=== PATIENT | female | born 1985 | race Caucasian/White ===

== ENCOUNTER 2020-08-14 23:57 | Emergency (ER) | payer BC, SELFPAY ==
--- NOTE | ~2020-08-14 | XR_ITS ---
EXAMINATION: XR ankle RT 2V DATE: 08/15/2020 00:50 INDICATION: Dog bite with pain at the lateral malleolus of the right ankle TECHNIQUE: Anteroposterior and lateral views of the right ankle were obtained. COMPARISON: None. FINDINGS: Alignment is normal. No fracture. Joint spaces are well maintained. No ankle joint effusion. The so ft tissues are unremarkable. IMPRESSION: 1. Negative right ankle radiographs. Reviewed, dictated and finalized at location A. FURNACE OPERATOR
[2020-08-15 00:05] VITALS: BP 126/93; PULSE 79; RESP 16; TEMP 37; O2SAT 100
--- NOTE | 2020-08-15 00:12 | ECG_ITS ---
Measurements Intervals [place] Rate: 84 P: 65 KS: 137 QRS: 64 QRSD: 90 T: 26 QT: 371 QTc: 441 Interpretive Statements SINUS RHYTHM NONSPECIFIC T-WAVE ABNORMALITY- ANTERIOR LEADS BORDERLINE ECG Electronically Signed On 08-15-2020 6:49:53 PROJECT MANAGEMENT PROFESSIONAL by Nas Su D.O.
--- NOTE | 2020-08-15 00:34 | ED.SYNCOPE ---
HPI - Syncope General Chief Complaint: Syncope Stated Complaint: SYNCOPE Time Seen by Provider: 08/15/20 00:00 Source: patient Mode of arrival: ambulatory Limitations: no limitations History of Present Illness HPI narrative: A 35-year-old female comes into the emergency department tonight after complaints of a syncopal episode. Patient states earlier today she accidentally kicked her dog while playing with him, noting that his tooth caught her ankle. Patient states that the wound bled pretty significantly and now has started to cause serious pain. Patient notes that she got the bleeding to stop at home. She does endorse some numbness and tingling in the area. She states that while lying in bed the pain became so intense that she could not go to sleep. She got up from bed went to go get some Tylenol or ibuprofen for the pain and states that she almost passed out from the pain. Her was able to catch her and lowered her to the ground. Related Data Allergies Allergy/AdvReac Type Severity Reaction Status Date / Time No Known Allergies Allergy Unverified 09/10/18 12:32 Review of Systems Review of Systems: Narrative: CONSTITUTIONAL: Denies fever, chills, or sweats. EYES: Denies visual changes, redness, or discharge. ENT: Denies rhinorrhea, congestion, sore throat, or otalgia. CARDIOVASCULAR: Denies chest pain, palpitations, or edema. RESPIRATORY: Denies cough or dyspnea. GASTROINTESTINAL: Denies abdominal pain, nausea, vomiting, or diarrhea. GENITOURINARY: Denies dysuria or hematuria. SKIN: Denies rash or itching. MUSCULOSKELETAL: Denies back pain, joint pain, or myalgia. Right ankle pain NEUROLOGIC: Denies headache, numbness, dizziness, or weakness. PSYCHIATRIC: Denies anxiety or depression. Exam Narrative: Exam Narrative: GENERAL: Well-appearing, well-nourished, and in no acute distress. HEAD: Normocephalic, atraumatic. EYES: PERRLA and EOMI. ENT: Nares clear, no rhinorrhea or epistaxis. Mucous membranes moist. Oropharynx without tonsillar hypertrophy exudate or other lesions. Bilateral TMs pearly roland nonbulging NECK: Supple. No adenopathy or masses. No carotid bruits or JVD CHEST: Clear to auscultation. No respiratory distress. No wheezes rales or rhonchi HEART: Regular rate and rhythm. No murmur heard. Normal peripheral pulses. ABDOMEN: Soft, nontender, nondistended, normal active bowel sounds. EXTREMITIES: Normal range of motion. No edema. Punctate wound noted just anterior to the medial malleolus of the right ankle SKIN: Warm, dry, no rash. NEURO: No focal deficits. Alert and oriented x3. PSYCH: Normal mood and affect. Course Reevaluation(s) Reevaluation #1: Patient resting comfortably at this time. She states that she was given the pain medication and antibiotic approximately 15 to 20 minutes ago. She notes that the pain has just started to go down. Explained to her that this will continue to go down as the medicine takes full effect. Patient will be discharged with prescriptions for antibiotics and pain medicines. Time: 01:49 Vital Signs Vital signs: Vital Signs Temperature 37.0 C 08/15/20 00:05 Pulse Rate 79 08/15/20 00:05 Respiratory Rate 16 08/15/20 00:05 Blood Pressure 126/93 H 08/15/20 00:05 Pulse Oximetry 100 08/15/20 00:05 Temperature 37.0 C 08/15/20 00:05 Pulse Rate 79 08/15/20 00:05 Respiratory Rate 16 08/15/20 00:05 Blood Pressure 126/93 H 08/15/20 00:05 Pulse Oximetry 100 08/15/20 00:05 MDM - Syncope MDM Narrative Medical decision making narrative: In brief this is a 35-year-old female who essentially came in with a dog bite injury. After accidentally kicking her dog and the tooth catching her ankle the patient did sustain a puncture wound to the right ankle. She was complaining of severe pain in this area. X-ray of the joint does not demonstrate any retained foreign bodies. Patient was treated symptomatically with pain medicines and antibiotics. She
[2020-08-15] MEDS: IBUPROFEN 600 MG TABLET PO (00:55)
[2020-08-15] MEDS: AMOXICILLIN/CLAVULANATE K 875-125 MG TAB 1 TABLET PO (00:56)
[2020-08-15] MEDS: oxyCODONE/ACETAMINOPHEN (*CRX) 5-325 MG TABLET 1 TABLET PO (00:56)
[2020-08-15 01:15] VITALS: BP 127/81; PULSE 77; PULSE 80; RESP 18; O2SAT 100
[2020-08-15 01:16] LABS: Basophils Percent Auto 0.4 % (0.2-1.2); Eosinophils Absolute Auto 0.1 K/mm3 (0-0.3); Hematocrit 37.3 % (37.0-47.0); Hemoglobin 12.1 g/dL (12.0-15.0); Immature Granulocyte Absolute 0.03 K/mm3 (0.00-0.031); Immature Granulocyte Percent A 0.3 % (0-0.5); Lymphocytes Absolute Auto 2.29 K/mm3 (0.9-3.2); Lymphocytes Percent Auto 25.6 % (18.3-44.2); Mean Corpuscular HGB Conc 32.4 g/dl (32-36); Mean Corpuscular Hemoglobin 27.4 pg (26-34); Mean Corpuscular Volume 84.4 fl (80-100); Mean Platelet Volume 11.1 fl (7.4-10.4); Monocytes Absolute Auto 0.5 K/mm3 (0.1-0.6); Neutrophils Percent Auto 67.7 % (45.5-73.1); Platelet Count Result 201 k/mm3 (150-375); Red Blood Count 4.42 M/mm3 (4.2-5.4); Red Cell Distribution Width 13.8 % (11.5-14.5); White Blood Count 8.9 K/mm3 (4.5-10.0)
[2020-08-15 01:30] VITALS: O2SAT 100
[2020-08-15 01:34] LABS: Anion Gap 3 mmol/L (8-16); Blood Urea Nitrogen 14 mg/dL (7-17); Calcium 8.9 mg/dL (8.4-10.2); Carbon Dioxide 27 mmol/L (22-30); Chloride 108 mmol/L (98-107); Estimated CRCL calculation 95 ml/min; Estimated Glomerular Filt Rate > 60; Glucose 97 mg/dL (65-105); Potassium 3.5 mmol/L (3.4-5.0); Sodium 138 mmol/L (137-145)
[2020-08-15 02:06] VITALS: BP 115/86; PULSE 96; RESP 20; O2SAT 98
== END 2020-08-15 02:15 | disposition home or self-care (01) ==
PROVIDERS: Emergency Provider Emergency Medicine
DX: R55 Syncope and collapse (principal); S91.031A Puncture wound without foreign body, right ankle, initial encounter; W54.8XXA Other contact with dog, initial encounter; R94.31 Abnormal electrocardiogram [ECG] [EKG]
CPT/HCPCS: 36415; 73600; 80048; 85025; 93005; 99283; A9270

== ENCOUNTER → 2021-09-16 15:24 | Outpatient (CLI) | payer BC, SELFPAY ==
--- NOTE | ~2021-09-16 | US_ITS ---
EXAMINATION: US OB /maternal detail DATE: 09/16/2021 16:01 INDICATION: survey. Estimated weight. TECHNIQUE: Multiple obstetric sonographic images performed. FINDINGS: No prior studies for comparison. There is a single living fetus in vertex presentation. The placenta is posterior and low lying measu ring 1.2 cm to the cervix without placenta previa. Amniotic fluid volume is subjectively normal. cardiac activity and movement is noted with a heart rate of 151 beats per minute. The following anatomy was identified as normal: 4 chamber heart 3 vessel cord cord insertion kidneys urinary bladder stomach spine diaphragm ventricles cisterna magna cerebellum The following biometric data were obtained: BPD: 48mm corresponds to gestational age 20 weeks 3 days. Head circumference: 182 mm corresponds to gestational age 20 weeks 4 days. Abdominal circumference: 150 to mm corresponds to gestational age 20 weeks 3 days. Femur length: 34 mm corresponds to gestational age 20 weeks 3 days. Head circumference to abdominal circumference ratio: 1.2 (normal range for expected gestational age i s 1.07-1.25). Estimated weight: 356 grams +/- 54 grams using Hadlock method, 39.7%. IMPRESSION: 1: Single living intrauterine with an estimated gestational age of 20weeks 3days by current ultrasound measurements, with an EDC of 02/01/2012 in breech presentation. 2. Normal survey. 3: Low-lying posterior placenta measuring 1.2 cm to the cervix. Reviewed, dictated and finalized at location A. MITE PACKING MACHINE FEEDER IMPRESSION: 1: Single living intrauterine with an estimated gestational age of 20 weeks 3days by current ultrasound measurements, with an EDC of 02/01/2012 in fernando ech presentation. 2. Normal survey. 3: Low-lying posterior placenta measuring 1.2 cm to the cervix.
== END ==
PROVIDERS: PCP Obstetrics & Gynecology; Visit Provider Obstetrics & Gynecology
DX: Z34.92 Encounter for supervision of normal pregnancy, unspecified, second trimester (principal); Z3A.20 20 weeks gestation of pregnancy
CPT/HCPCS: 76805

== ENCOUNTER 2022-01-09 18:03 | Observation (INO) | payer BC, SELFPAY ==
[2022-01-09 20:00] VITALS: BMI 29.0
--- NOTE | 2022-01-09 20:33 | OBADM ---
This patient, Hannah Castillo, admitted to the OB room Labor/Delivery/Recovery 105 for observation. Patient/family oriented to hospital policies and general routines including ID bracelet, bed and alarms, visiting hours, pain management, procedures, bathroom and other care routines, personal items, smoking policy, room service/diet, and visiting hours. Patient/Family are encouraged to report perceived risks to care and to ask questions if they do not understand what they are told or what they should do.
--- NOTE | 2022-01-11 16:39 | PM.OBTRLD ---
OB - Triage/Final Diagnosis Visit Information Date of evaluation: 01/09/22 Reason for evaluation: threatened labor Comments/Additional reasons for admission: I have assessed the risk for this patient, Hannah Rachelle Castillo, and determined that she would benefit from observation care.
== END 2022-01-09 20:33 | disposition home or self-care (01) ==
PROVIDERS: Admitting Provider Student in an Organized Health Care Education/Training Program; Visit Provider Student in an Organized Health Care Education/Training Program
DX: O47.1 False labor at or after 37 completed weeks of gestation (principal); Z3A.37 37 weeks gestation of pregnancy
CPT/HCPCS: G0378; G0379

== ENCOUNTER 2022-01-17 07:56 | Outpatient (CLI) | payer BC, SELFPAY ==
[2022-01-17] VITALS (13 sets, daily range): BP systolic 107–129; BP diastolic 57–89; PULSE 80–95
[2022-01-17 09:01] LABS: Basophils Percent Auto 0.3 % (0.2-1.2); Eosinophils Absolute Auto 0.1 K/mm3 (0-0.3); Eosinophils Percent Auto 0.7 % (0-4.4); Hematocrit 39.6 % (37.0-47.0); Immature Granulocyte Absolute 0.05 K/mm3 (0.00-0.031); Immature Granulocyte Percent A 0.6 % (0-0.5); Lymphocytes Percent Auto 14.7 % (18.3-44.2); Mean Corpuscular HGB Conc 32.8 g/dl (32-36); Mean Corpuscular Hemoglobin 28.8 pg (26-34); Mean Corpuscular Volume 87.6 fl (80-100); Mean Platelet Volume 11.2 fl (7.4-10.4); Monocytes Absolute Auto 0.5 K/mm3 (0.1-0.6); Monocytes Percent Auto 5.6 % (2.6-8.5); Neutrophils Absolute Auto 6.9 K/mm3 (1.3-6.7); Neutrophils Percent Auto 78.1 % (45.5-73.1); Platelet Count Result 165 k/mm3 (150-375); Red Blood Count 4.52 M/mm3 (4.2-5.4); White Blood Count 8.9 K/mm3 (4.5-10.0)
[2022-01-17 09:06] LABS: Creatinine Urine 27.3 mg/dL; Total Protein Urine Random 11 mg/dL
[2022-01-17 09:07] LABS: Alanine Aminotransferase 10 U/L (6-35); Albumin Level 3.7 g/dL (3.5-5.1); Alkaline Phosphatase 227 U/L (38-126); Anion Gap 4 mmol/L (8-16); Aspartate Amino Transferase 21 U/L (14-36); Bilirubin,Total 0.2 mg/dL (0.2-1.3); Blood Urea Nitrogen 4 mg/dL (7-17); Calcium 8.7 mg/dL (8.4-10.2); Carbon Dioxide 24 mmol/L (22-30); Chloride 107 mmol/L (98-107); Estimated Glomerular Filt Rate > 60; Glucose 78 mg/dL (65-110); Potassium 3.8 mmol/L (3.4-5.0); Sodium 135 mmol/L (137-145); Uric Acid 3.4 mg/dL (2.5-7.5)
[2022-01-17 09:08] LABS: Appearance Urine Clear (Clear); Bilirubin Urine Negative (Negative); Blood Urine Negative (Negative); Color Urine Yellow (Yellow); Glucose Urine UA Negative (Negative); Ketones Urine Negative (Negative); Leukocyte Esterase Ur Trace LEU/UL (NEGATIVE); Nitrate Urine Negative (Negative); Protein Urine Negative (Negative); Urobilinogen Urine 0.2 mg/dL (<2.0)
[2022-01-17 09:30] LABS: Bacteria Urine Trace /hpf; RBC Urine 0-2 /hpf (0-2); Squamous Epithelial Cell Urine Rare /hpf (Few); WBC Urine 0-3 /hpf (0-3)
[2022-01-17 09:33] LABS: Add Urine Microscopic? YES
--- NOTE | 2022-01-17 09:34 | PC.NURSE ---
Dr Mendieta notified of admission complaint of elevated blood pressure, headache, heart tones, and lab values. Orders received, pt okay to D/C if headached is better.
[2022-01-17] MEDS: ACETAMINOPHEN/BUTALBITAL/CAFFEINE 325-50-40 MG TABLET (FIORICET) 1 TAB PO (10:07)
== END 2022-01-17 11:12 | disposition home or self-care (01) ==
LOC: ANHOBOP 08:03 → ANHOBPP 01-24 09:40
PROVIDERS: Visit Provider Obstetrics & Gynecology
DX: O13.9 Gestational [pregnancy-induced] hypertension without significant proteinuria, unspecified trimester (principal); Z3A.00 Weeks of gestation of pregnancy not specified
CPT/HCPCS: 36415; 59025; 80053; 81001; 82570; 84156; 84550; 85025; 87086; 87088; 99199; A9270

== ENCOUNTER 2022-01-18 09:42 | Inpatient (IN) | payer BC, SELFPAY ==
[2022-01-18] VITALS (110 sets, daily range): BP systolic 107–141; BP diastolic 64–89; PULSE 71–139; RESP 16–18; TEMP 36.4–38.1; O2SAT 76–100; BMI 27.4
--- NOTE | 2022-01-18 09:42 | LDADM ---
This patient, Hannah Castillo, was admitted to Labor/Delivery/Recovery 104 on 01/18/22 at 09:42. Plans for labor, pain management and were discussed with patient. Patient/family oriented to hospital policies and general routines including ID bracelet, bed and alarms, visiting hours, pain management, procedures, bathroom and other care routines, personal items, smoking policy, room service/diet and guest tray routines, infant security routines, and visiting hours. Patient/Family are encouraged to report perceived risks to care and to ask questions if they do not understand what they are told or what they should do. See OBIX for further documentation.
[2022-01-18 10:16] LABS: Basophils Percent Auto 0.4 % (0.2-1.2); Eosinophils Percent Auto 0.4 % (0-4.4); Hematocrit 37.7 % (37.0-47.0); Hemoglobin 12.9 g/dL (12.0-15.0); Immature Granulocyte Absolute 0.07 K/mm3 (0.00-0.031); Immature Granulocyte Percent A 0.7 % (0-0.5); Lymphocytes Absolute Auto 1.58 K/mm3 (0.9-3.2); Mean Corpuscular HGB Conc 34.2 g/dl (32-36); Mean Corpuscular Hemoglobin 29.3 pg (26-34); Mean Corpuscular Volume 85.5 fl (80-100); Mean Platelet Volume 10.8 fl (7.4-10.4); Monocytes Absolute Auto 0.7 K/mm3 (0.1-0.6); Monocytes Percent Auto 6.2 % (2.6-8.5); Neutrophils Absolute Auto 8.2 K/mm3 (1.3-6.7); Neutrophils Percent Auto 77.3 % (45.5-73.1); Platelet Count Result 166 k/mm3 (150-375); Red Blood Count 4.41 M/mm3 (4.2-5.4); Red Cell Distribution Width 13.9 % (11.5-14.5); White Blood Count 10.6 K/mm3 (4.5-10.0)
[2022-01-18] MEDS: LACTATED RINGERS 1,000 ML 125 ML IV CONT ×3 (10:24→14:11)
--- NOTE | 2022-01-18 10:51 | WPDANESEPP ---
Anes - Eval Pre Procedure Procedure: labor epidural Date/Time: 01/18/22 10:51 Surgeon: perico Preop Diagnosis: pain during labor Pre Op Diagnosis: LEAKING Patient Data Age: 36 Gender: F Height: 1.73 m Weight: 82 kg Last Vital Signs Pulse 98 01/18/22 10:15 BP 120/82 01/18/22 10:15 Allergies Allergy/AdvReac Type Severity Reaction Status Date / Time No Known Allergies Allergy Verified 01/05/22 15:27 Home Medications Medication Instructions Recorded Confirmed Type docusate sodium 100 mg capsule 100 mg PO DAILY 01/05/22 01/05/22 History (Colace) magnesium 250 mg tablet 250 mg PO DAILY 01/05/22 01/05/22 History prenat.vits,ann,[id number] 1 tablet PO DAILY 01/05/22 01/05/22 History amoxicillin 500 mg tablet 1 tablet PO 2XD 01/17/22 01/18/22 History Laboratory Tests 01/18/22 01/18/22 10:07 10:07 WBC 10.6 K/mm3 H K/mm3 (4.5-10.0) RBC 4.41 M/mm3 M/mm3 (4.2-5.4) Hgb 12.9 g/dL g/dL (12.0-15.0) Hct 37.7 % % (37.0-47.0) MCV 85.5 fl fl (80-100) MCH 29.3 pg pg (26-34) MCHC 34.2 g/dl g/dl (32-36) RDW 13.9 % % (11.5-14.5) Plt Count 166 k/mm3 k/mm3 (150-375) MPV 10.8 fl H fl (7.4-10.4) Immature Gran % (Auto) 0.7 % H % (0-0.5) Neut % (Auto) 77.3 % H % (45.5-73.1) Lymph % (Auto) 15.0 % L % (18.3-44.2) [place] % (Auto) 6.2 % % (2.6-8.5) Eos % (Auto) 0.4 % % (0-4.4) Baso % (Auto) 0.4 % % (0.2-1.2) Lymph # (Auto) 1.58 K/mm3 K/mm3 (0.9-3.2) [place] # (Auto) 0.7 K/mm3 H K/mm3 (0.1-0.6) Eos # (Auto) 0.0 K/mm3 K/mm3 (0-0.3) Baso # (Auto) 0.0 K/mm3 K/mm3 (0.0-0.1) Abs Immat Gran (auto) 0.07 K/mm3 H K/mm3 (0.00-0.031) Absolute Neuts (auto) 8.2 K/mm3 H K/mm3 (1.3-6.7) Absolute Nucleated RBC 0.0 K/mm3 K/mm3 (0.0-0.012) Nucleated RBC % 0.0 % % (0.0-0.2) RPR Pending Patient hx anesthesia problems: none Family hx anesthesia problems: none Results Review: All pre-operative results and documents have been reviewed as part of the pre-operative evaluation. [facility] Family History Family History (Updated 01/05/22 @ 15:31 by Hina Pierce RN) Other No pertinent family history Social History Social History Smoking status: Never smoker Substance use: never Spiritual care concerns: No Exam Day of Procedure 01/18/22 10:51
[2022-01-18] MEDS: OXYTOCIN 30 UNITS/NS 500 ML 30 UNITS/500 ML BAG IV CONT (12:19)
--- NOTE | 2022-01-18 12:56 | WPDOBADMIT ---
Obstetrics - Admit Note Admission Note: record reviewed. Additions to the history and/or subsequent changes in the physical findings follow. 36 y/o at 38 6/7 weeks with gush of fluid at 0630 today. SROM confirmed in office. Occasional contractions. GBS neg. She is now comfortable with epidural. AVSS NST reactive TOCO: contractions irregularly ABD soft, nontender, gravid, vertex EXT nontender Cervix 4/50/-2. AROM forebag, return of clear fluid. A: IUP at term with SROM. P: Augment labor as needed. Anticipate .
--- NOTE | 2022-01-18 17:12 | PM.OBPRVD ---
OB - Delivery Note Procedure Delivery date: 01/18/22 Procedure: Induction method: None Delivery augmentation: Pitocin Delivery monitor: External FHT and External Uterine Route of delivery: Laceration Description: None Specimen: Yes (cord blood) Quantitative Blood Loss (ml): 220 Anesthesia type: Epidural Disposition: PACU Complications: None Narrative: 36 y/o at 38 6/7 weeks gestation who presented to the office with a gush of fluid at 0630. SROM diagnosed, and she was sent to L&D. Oxytocin was administered intravenously for labor augmentation. She received an epidural for pain control. Her labor progressed and her cervix dilated completely. She pushed with good effort and delivered the infant's head to the perineum, followed by the body. The nose and mouth were bulb suctioned. After a delay, the cord was clamped and cut. The was handed off the field. Cord blood was collected. The placenta delivered spontaneously and was grossly normal in appearance. The usual 3 vessel cord was noted. The perineum was intact. Needle and instrument counts were correct. The patient was taken to recovery room in stable condition. The went to the nursery in stable condition. I was present and scrubbed for the entire delivery. Baby Date of : 01/18/22 Time of : 16:55 Weeks of gestation at delivery: 38 Infant gender: Female Weight (pounds): 6 Weight (ounces): 8 presentation: vertex position: Left Occiput Anterior Placenta delivery description: Spontaneous and Normal Configuration Cord Vessel Description: 3 Vessels and Delayed Cord Clamping score one minute: 8 score five minutes: 9
--- NOTE | 2022-01-18 17:15 | P.DS_ITS ---
DS: Admitting Diagnosis Discharge Date 01/20/22 Admitting Diagnosis IUP at 38 6/7 weeks SROM DS: Discharge Diagnosis Discharge Diagnosis Plan OB - DS: Summary OB Procedures : None OB Procedures Intrapartum: Spontaneous Vag Delivery OB Procedures: : None Time Spent with Patient Time attestation: Total time spent providing and/or coordinating discharge services: DS: Data Data Completed and Pending Labs on day of discharge: Labs from last 24 hours 01/18/22 01/18/22 01/18/22 10:07 10:07 10:07 WBC 10.6 H RBC 4.41 Hgb 12.9 Hct 37.7 MCV 85.5 MCH 29.3 MCHC 34.2 RDW 13.9 Plt Count 166 MPV 10.8 H Immature Gran % (Auto) 0.7 H Neut % (Auto) 77.3 H Lymph % (Auto) 15.0 L [place] % (Auto) 6.2 Eos % (Auto) 0.4 Baso % (Auto) 0.4 Lymph # (Auto) 1.58 [place] # (Auto) 0.7 H Eos # (Auto) 0.0 Baso # (Auto) 0.0 Abs Immat Gran (auto) 0.07 H Absolute Neuts (auto) 8.2 H Absolute Nucleated RBC 0.0 Nucleated RBC % 0.0 RPR Pending Blood Type A Positive Antibody Screen Negative Discharge Plan Discharge Attending physician on discharge: Martell Mendieta Discharging Clinician: Martell Mendieta Patient Disposition: Home, Self-Care Activity: pelvic rest Diet: regular Discharge Instructions: Call or return if temperature above 100.4? F, increased abdominal pain, increased vaginal bleeding or any new problems. Stand Alone Forms: General Discharge Information Follow-up/Referrals: Martell Mendieta MD [Physician] - 6 Weeks Discharge Medications: New ibuprofen 600 mg tablet 600 mg PO Q6H PRN (Reason: cramps) Qty: 30 0RF Continued docusate sodium [Colace] 100 mg Capsule 100 mg PO DAILY prenat.vits,ann,[id number] Tablet 1 tablet PO DAILY magnesium 250 mg Tablet 250 mg PO DAILY Discontinued amoxicillin 500 mg tablet 1 tablet PO 2XD Date of admission: 01/18/22 09:42 Primary Care Provider: PHYSICIAN,GEODETIC COMPUTATOR Admitting Provider: Martell Mendieta Attending physician on admission: Martell Mendieta Condition: Stable
[2022-01-18] MEDS: OXYTOCIN 30 UNITS/NS 500 ML 30 UNITS/500 ML BAG 125 UNITS IV CONT (17:27)
[2022-01-18] MEDS: WITCH HAZEL 40 PADS 1 PAD TOPICAL (19:26)
[2022-01-18] MEDS: BENZOCAINE 20% AER SPR (*SP) 56 GM CAN 1 SPRAY TOPICAL (19:26)
[2022-01-18] MEDS: IBUPROFEN 600 MG TABLET PO (19:26)
--- NOTE | 2022-01-18 19:37 | OBPPTRN ---
Patient transferred to post room #280 via W/C. Support person present. Oriented to unit, room, information board, rooming in, admission packet and security measures. Patient verbalizes understanding.
[2022-01-19 04:00] VITALS: BP 106/66; PULSE 69; RESP 16; TEMP 36.4
[2022-01-19 04:58] LABS: Hemoglobin 11.1 g/dL (12.0-15.0)
[2022-01-19 07:10] VITALS: BP 109/75; PULSE 74; RESP 16; TEMP 36.6; O2SAT 100
--- NOTE | 2022-01-19 07:53 | P.PNOB_ITS ---
OB - PN: Subj Subjective Date/time seen: 01/19/22 07:53 Narrative: Pain OK. OB - PN: Obj Data Labs CBC & Chem 7: 01/19/22 04:03 Labs: Laboratory Results - last 24 hr 01/18/22 01/18/22 01/19/22 10:07 10:07 04:03 WBC 10.6 H RBC 4.41 Hgb 12.9 11.1 L Hct 37.7 34.0 L MCV 85.5 MCH 29.3 MCHC 34.2 RDW 13.9 Plt Count 166 MPV 10.8 H Immature Gran % (Auto) 0.7 H Neut % (Auto) 77.3 H Lymph % (Auto) 15.0 L [place] % (Auto) 6.2 Eos % (Auto) 0.4 Baso % (Auto) 0.4 Lymph # (Auto) 1.58 [place] # (Auto) 0.7 H Eos # (Auto) 0.0 Baso # (Auto) 0.0 Abs Immat Gran (auto) 0.07 H Absolute Neuts (auto) 8.2 H Absolute Nucleated RBC 0.0 Nucleated RBC % 0.0 Blood Type A Positive Antibody Screen Negative OB - PN A/P Plan Comments: A: PPD#1, doing well. P: Routine care. Exam Psych: Other: AVSS ABD soft, nontender, fundus firm EXT nontender
[2022-01-19] MEDS: IBUPROFEN 600 MG TABLET PO ×2 (08:39→17:25)
[2022-01-19] MEDS: MULTIVIT/MIN/PREN/FOL AC/IRON TABLET 1 TAB PO (08:40)
[2022-01-19] MEDS: DOCUSATE SODIUM 100 MG CAPSULE PO ×2 (08:51→17:25)
--- NOTE | 2022-01-19 09:28 | WPDANLDPN2 ---
Anes-Prog Note L&D Date/Time: 01/19/22 09:28 Neuro status: Neuro function grossly intact. Vital Signs: Last Vital Signs Temp 36.6 C 01/19/22 07:10 Pulse 74 01/19/22 07:10 Resp 16 01/19/22 07:10 BP 109/75 01/19/22 07:10 Pulse Ox 100 01/19/22 07:10 O2 Del Method Room Air 01/18/22 20:00 Pain score (VAS): 0 I/O: Intake & Output 01/18/22 01/19/22 01/19/22 23:59 07:59 15:59 Intake Total 300 Output Total 645 Balance -345 Patient feedback: Patient satisfied with anesthetic care.
[2022-01-19 11:52] VITALS: BP 112/70; PULSE 88; RESP 16; TEMP 36.2; O2SAT 99
[2022-01-19 12:52] LABS: Rapid Plasma Reagin Non-Reactive (NonReactive)
[2022-01-19 15:45] VITALS: BP 132/86; PULSE 74; RESP 16; TEMP 36.8; O2SAT 98
[2022-01-19 19:00] VITALS: BP 115/73; PULSE 77; RESP 16; TEMP 36.4
[2022-01-20 07:35] VITALS: BP 109/69; PULSE 83; RESP 18; TEMP 36.7; O2SAT 98
--- NOTE | 2022-01-20 08:38 | WPDANLDPN2 ---
Anes-Prog Note L&D Date/Time: 01/20/22 08:38 Neuro status: Neuro function grossly intact. Vital Signs: Last Vital Signs Temp 36.4 C 01/19/22 19:00 Pulse 77 01/19/22 19:00 Resp 16 01/19/22 19:00 BP 115/73 01/19/22 19:00 Pulse Ox 98 01/19/22 15:45 O2 Del Method Room Air 01/19/22 19:00 Pain score (VAS): 0 Patient feedback: Patient satisfied with anesthetic care.
[2022-01-20] MEDS: MULTIVIT/MIN/PREN/FOL AC/IRON TABLET 1 TAB PO (09:00)
[2022-01-20] MEDS: DOCUSATE SODIUM 100 MG CAPSULE PO (09:00)
[2022-01-20] MEDS: IBUPROFEN 600 MG TABLET PO (09:00)
--- NOTE | 2022-01-20 12:14 | PC.NURSE ---
[id number] Introductions were made, then consulted with patient to assess needs related to . Mother led the conversation with her experience feeding her so far. Mother works well with her [with encouragement and education]. Encouraged understanding of the benefits of skin to skin (unwrapping and placing vertically on her chest), responsive feeding and how to watch for early feeding signs, frequency of feeding on demand about every 8-12 times in 24 hours (every 2-3 hours), milk production, duration of feeding, signs of adequate intake/output and how to record on the feeding sheet. Reviewed positioning and ear, shoulder, hip alignment, supporting the breast, asymmetrical latch (off-center), and leading with the chin with a big open side gape. Infant latched optimally to the left breast in football position with no need to use the nipple shield at bedside. Education given to mother of how to visualize suck/swallow ratios and drinking at the breast. was able to maintain latch without discomfort to mother. Nipple care reviewed with optimal latch and good positioning. Reminding mother of comfort measures of healing with a warm and wet washcloth to rinse breast, then leave open to air-dry as needed. Reviewed good handwashing when or touching the breast/nipples to prevent infection. Mother led the conversation with her experience and plan to feed her so far and her desire to breastfeed and her choice to also bottle feed as well. Reminded parents to use good handwashing technique to prevent infection. Mother is feeding appropriately for growth of and understands stimulating infant to eat if needed. has had appropriate feedings in the last 24 hours meets the outcomes for weight, output and jaundice at this time. Mother states she is confident to continue effectively breastfeed and bottle feed her infant at home or when to call for assistance and denies any additional assistance or education at this time. Reinforced understanding of milk production, transition of milk, signs of adequate intake, prevention/relief of engorgement, responsive after visualizing feeding cues, the different methods of stimulating infant to breastfeed 2-3 hours after the start of the last feeding, community resources, medication information reviewed per [facility] and when to call a provider using the resource of the mom and baby guide/[facility] website. Mother voiced understanding of the education shared. Reported to the primary RN.
--- NOTE | 2022-01-20 13:07 | PM.OBPNVD ---
OB - PN: Subj Subjective Date/time seen: 01/20/22 13:07 Narrative: Pain OK. Would like to go home. OB - PN: Obj Data Labs CBC & Chem 7: 01/19/22 04:03 OB - PN A/P Plan Comments: A: PPD#2, doing well. P: Home to f/u 6 weeks. Exam Psych: Other: AVSS ABD soft, nontender, fundus firm EXT nontender
[2022-01-21 11:02] VITALS: BP 131/85; PULSE 90; RESP 16; TEMP 37.4; O2SAT 99
== END 2022-01-20 14:12 | disposition home or self-care (01) | DRG 807 ==
LOC: ANHLDR 17:18 → ANHOB2 19:39
PROVIDERS: Admitting Provider Obstetrics & Gynecology; Visit Provider Obstetrics & Gynecology
DX: O62.3 Precipitate labor (principal); Z37.0 Single live birth; Z3A.38 38 weeks gestation of pregnancy
CPT/HCPCS: 36415; 85014; 85018; 85025; 86592; 86850; 86900; 86901; A9270; J2590; J2795; J7120